=== PATIENT | female | born 1975 | race Caucasian/White ===

== ENCOUNTER 2019-03-03 13:43 | Outpatient (CLI) | payer OTHER ==
[~2019-03-03 13:43] MED LIST: AMOX1TAB12 PO; TUSSI PRES-B L120 M1 PO
== END 2019-03-03 13:47 | disposition home or self-care (01) ==
LOC: EKG 13:43 → LAB 13:43
DX: I10 Essential (primary) hypertension (principal)

== ENCOUNTER 2019-03-09 08:45 | Inpatient (IN) | payer OTHER ==
[~2019-03-09] VITALS: Ht 162.6 cm; Wt 74.8 kg
[2019-03-09] MEDS ORDERED: MULTIPLE VITAM1 EACH PO (09:53)
[2019-03-09] MEDS ORDERED: IRON325 MG PO (09:53)
== END 2019-03-12 10:57 | disposition home or self-care (01) | DRG 743 ==
LOC: SURH 03-11 07:00 → O/R 03-11 09:14 → SURH 03-11 09:14
PROVIDERS: ADMIT Obstetrics & Gynecology
PROC: 0UT74ZZ Resection of Bilateral Fallopian Tubes, Percutaneous Endoscopic Approach (ICD-10-PCS; 2019-03-11)
PROC: 0UT94ZZ Resection of Uterus, Percutaneous Endoscopic Approach (ICD-10-PCS; principal; 2019-03-11 07:00)
DX: D25.1 Intramural leiomyoma of uterus (principal); D25.2 Subserosal leiomyoma of uterus; N73.6 Female pelvic peritoneal adhesions (postinfective)

== ENCOUNTER 2020-01-30 09:50 | Emergency (ER) | payer OTHER ==
[~2020-01-30] VITALS: Ht 162.6 cm; Wt 76.2 kg
[~2020-01-30 09:50] MED LIST changes: +IRON325 MG PO; +MULTIPLE VITAM1 EACH PO
[2020-01-30] MEDS ORDERED: DRAMAMINE LESS25 MG PO (14:35)
== END 2020-01-30 14:41 | disposition home or self-care (01) ==
LOC: ER 09:50
DX: R42 Dizziness and giddiness (principal)

== ENCOUNTER 2025-10-19 19:00 | Emergency (ER) | payer OTHER ==
[~2025-10-19] VITALS: Ht 162.6 cm; Wt 70.8 kg
[~2025-10-19 19:00] MED LIST changes: +DRAMAMINE LESS25 MG PO
[2025-10-19] MEDS ORDERED: DEXAMETHASONE SODIUM PHOSPHATE 4 MG/ML VIAL IM STA (19:30)
[2025-10-19] MEDS ORDERED: BUTALB/ACETAMINOPHEN/CAFFEINE 1 TAB TABLET PO STA (19:30)
[2025-10-19] MEDS ORDERED: DEXAMETHASONE SODIUM PHOSPHATE 4 MG/ML VIAL ONE (20:07)
[2025-10-19] MEDS ORDERED: BUTALB/ACETAMINOPHEN/CAFFEINE 1 TAB TABLET PO ONE (20:07)
[2025-10-19] MEDS ORDERED: BUTALB-ACETAMI1 EACH PO (20:44)
[2025-10-19] MEDS ORDERED: MEDROLPACK PO (20:44)
[2025-10-19] MEDS ORDERED: DIPHENHYDRAMINE HCL 50 MG/ML VIAL 1ML IM STA (20:46)
[2025-10-19] MEDS ORDERED: DIPHENHYDRAMINE HCL 50 MG/ML VIAL 1ML ONE (21:01)
[2025-10-19] MEDS ORDERED: BENADRYL25 MG PO (22:10)
== END 2025-10-19 22:46 | disposition home or self-care (01) ==
LOC: ER 19:01
DX: G43.909 Migraine, unspecified, not intractable, without status migrainosus (principal); Z88.1 Allergy status to other antibiotic agents